=== PATIENT | female | born 1990 | race African-American/Black ===

== ENCOUNTER 2016-09-10 13:50 | Emergency (ER) | payer OTHER, SELFPAY ==
[2016-09-10] MEDS ORDERED: Acetaminophen 500 MG TAB ONE (14:05)
--- NOTE | 2016-09-10 14:32 | ERRECORD ---
[facility] EMERGENCY RECORD HPI FLU-LIKE SYNDROME (14:13 BPIC) CHIEF COMPLAINT: Patient presents for evaluation of body aches, Patient presents for evaluation of fatigue, Patient presents for evaluation of fever, subjective. HISTORIAN: History provided by patient. LOCATION: Symptoms are generalized. SEVERITY: Maximum severity of symptoms moderate, Currently symptoms are moderate. TIME COURSE: Gradual onset of symptoms, are constant. ASSOCIATED WITH: Associated with cough, non-productive, Associated with headache. EXACERBATED BY: Patient's condition exacerbated by nothing. RELIEVED BY: Patient's condition relieved by over the counter medications, antipyretics (transiently). ROS (14:13 BPIC) CONSTITUTIONAL: Negative constitutional review of systems. EYES: Negative eye review of systems. ENT: Negative ears, nose, throat review of systems. CARDIOVASCULAR: Negative cardiovascular review of systems. RESPIRATORY: Negative respiratory review of systems. GI: Negative gastrointestinal review of systems. MUSCULOSKELETAL: Negative musculoskeletal review of systems. SKIN: Negative skin review of systems. PSYCHIATRIC: Negative psychiatric review of systems. NOTES: All other ROS is negative except as listed in HPI. PAST MEDICAL HISTORY MEDICAL HISTORY: No past medical history. (13:59 MDEB) NOTES: I have reviewed and agree with the PMH/PSxH/FamHx/SocHx obtained by the nurse. (14:13 BPIC) KNOWN ALLERGIES No Known Allergies CURRENT MEDICATIONS No recorded medications VITAL SIGNS (13:57 MDEB) VITAL SIGNS: BP: 130/83, Pulse: 107, Resp: 20, Temp: 101.2 (Tympanic), Pain: 7, O2 sat: 98 on Room Air, Time: 09/10/2016 13:57. PHYSICAL EXAM (14:13 BPIC) CONSTITUTIONAL: Vital signs reviewed, Patient afebrile, Pulse normal, Blood pressure normal, Respiratory rate normal, Patient appears non toxic, Patient appears pain free, Patient alert and oriented to person, place and time. HEAD: Head exam included findings of head atraumatic, normocephalic. &a-1R&a+25V*p+0X*l6335D*c202B*c15G*c2P*p-0X&a-25V&a+1R Name: Jocelynn Araiza : 1990 F26 MedRec: [id number] AcctNum: [id number] Prepared: ThuSep 10, 2016 21:21 by Interface Page 1 of 2 pMD [facility] EMERGENCY RECORD EYES: Eye exam included findings of eyelids normal to inspection, Pupils equally round and reactive to light, Extraocular muscles intact. ENT: ENT exam normal, Nose exam included findings of, Nasal congestion noted., Pharynx, Mild erythema, Uvula exam normal. NECK: Neck exam included findings of normal range of motion, Trachea midline. RESPIRATORY CHEST: Respiratory exam included findings of no respiratory distress, Breath sounds clear, Chest exam included findings of chest movement symmetrical, Chest expansion equal. CARDIOVASCULAR: Cardiovascular exam included findings of heart rate regular rate and rhythm, Heart sounds normal. NEURO: Neuro exam findings include patient oriented to person, place and time, Speech normal. PSYCHIATRIC: Psychiatric exam included findings of patient oriented to person place and time, Normal affect. MEDICATION ADMINISTRATION SUMMARY Drug Name: *Tylenol Children's, Dose Ordered: 6 teaspoon, Route: Oral, Status: Given, Time: 14:11 09/10/2016, *Additional information available in notes, Detailed record available in Medication Service section. DOCTOR NOTES (14:13 BPIC) TEXT: Pt is well hydrated, non-toxic, and tolerating PO's. Pt is suitable for O/P treatment with PCP f/u. PROBLEM LIST No recorded problems DIAGNOSIS (14:13 BPIC) FINAL: PRIMARY: Viral Syndrome. PRESCRIPTION No recorded prescriptions DISPOSITION PATIENT: Disposition Type: Discharge, Disposition: *Discharge Home, Condition: Good. (14:13 BPIC) Patient left the department. (14:25 MDEB) Harding: BPIC=MD Ana, Eze BURRELLEB=ALYCIA Ward, Danyell &a-1R&a+25V*p+0X*[id number]*c202B*c15G*c2P*p-0X&a-25V&a+1R Name: Jocelynn Araiza : 1990 F26 MedRec: [id number] AcctNum: [id number] Prepared: ThuSep 10, 2016 21:21 by Interface Page 2 of 2 pMD MTDD
--- NOTE | 2016-09-10 14:38 | PICIS ---
[facility] EMERGENCY RECORD TRIAGE (13:59 MDEB) PATIENT: NAME: Jocelynn Araiza, AGE: 26, GENDER: female, : Supriya 1990, TIME OF GREET: ThuSep 10, 2016 13:51, PREFERRED LANGUAGE: Mongolian, RACE: Black or , ETHNICITY: Not or , ECODE BILLING MAP: [facility], SSN: [id number], Zip Code: [address], PHONE: , , , PERSON ID: [id number], PCP: QUE. (13:59 MDEB) KG WEIGHT: 83.46. (14:01 MDEB) TRIAGE NOTES: ST, FEVER, HEADACHE, GENERALIZED BODY ACHES THAT STARTED THIS AM. (13:59 MDEB) COMPLAINT: FLU LIKE SYM. (13:59 MDEB) ADMISSION: URGENCY: 3 Urgent, ADMISSION SOURCE: Home, TRANSPORT: Walk-in, BED: TRIAGE. (13:59 MDEB) PAIN: Patient complains of pain described as, aching, on a scale 0-10 patient rates pain as 7, Location THROAT. (13:59 MDEB) TRIAGE SCREENING: Patient denies suicidal ideation, Patient denies presence of domestic violence. (13:59 MDEB) PROVIDERS: TRIAGE NURSE: Danyell Ward RN. (13:59 MDEB) VITAL SIGNS: BP 130/83, Pulse 107, Resp 20, Temp 101.2, (Tympanic), Pain 7, O2 Sat 98, on Room Air, Time 09/10/2016 13:57. (13:57 MDEB) PREVIOUS VISIT ALLERGIES: No Known Allergies. (13:59 MDEB) KNOWN ALLERGIES No Known Allergies CURRENT MEDICATIONS No recorded medications VITAL SIGNS (13:57 MDEB) VITAL SIGNS: BP: 130/83, Pulse: 107, Resp: 20, Temp: 101.2 (Tympanic), Pain: 7, O2 sat: 98 on Room Air, Time: 09/10/2016 13:57. NURSING ASSESSMENT: ENT (14:01 MDEB) CONSTITUTIONAL: Patient arrives ambulatory, Gait steady, History obtained from patient, Patient appears, anxious, uncomfortable, Patient cooperative, Patient alert, Oriented to person, place and time, Skin warm, Skin dry, Skin normal in color, Mucous membranes pink, Mucous membranes moist, Patient is well-groomed, Patient complains of ST, FEVER, HEADACHE, GENERALIZED BODY ACHES. PAIN: aching pain, THROAT, on a scale 0-10 patient rates pain as 7, Pain exacerbated by nothing, Nothing has been tried to alleviate the pain. ENT: Ear assessment findings include ear normal to inspection, Nasal assessment findings include nose normal to inspection, Mouth and throat assessment findings include mouth inspection normal, Mucous membranes pink, and moist, Able to swallow, Speech normal, &a-1R&a+25V*p+0X*v5443D*c202B*c15G*c2P*p-0X&a-25V&a+1R Name: Jocelynn Araiza : 1990 F26 MedRec: [id number] AcctNum: [id number] Prepared: ThuSep 10, 2016 21:28 by Interface Page 1 of 4 pMD [facility] EMERGENCY RECORD Associated with fever, Maximum temperature (degree F) 101.2, tympanically, Associated with headache, STARTED THIS AM. RESPIRATORY/CHEST: Respiratory assessment findings include respiratory effort easy, Respirations regular, Conversing normally, Neck and chest exam findings include trachea midline, Chest expansion equal, Chest movement symmetrical. NOTES: Emotional support needed and given, Patient tolerated procedure well. SAFETY: Cart/Stretcher in lowest position, Call light within reach, Hospital ID band on. NURSING PROCEDURE: DISCHARGE NOTE (14:22 MDEB) DISCHARGE: Patient discharged to home, ambulating without assistance, family driving, unaccompanied, Summary of Care printed/ provided, Patient requested and was provided an electronic copy of Discharge Instructions, Transition record given to patient, Discharge instructions given to patient, Above person(s) verbalized understanding of discharge instructions and follow-up care, Patient treated and evaluated by physician. BELONGINGS: Belongings remain with patient, Valuables remain with patient. NOTES: Emotional support needed and given, Patient tolerated procedure well. MEDICATION ADMINISTRATION SUMMARY Drug Name: *Tylenol Children's, Dose Ordered: 6 teaspoon, Route: Oral, Status: Given, Time: 14:11 09/10/2016, *Additional information available in notes, Detailed record available in Medication Service section. MEDICATION SERVICE (14:11 BPIC) Tylenol Children's: Order: Tylenol Children's (acetaminophen) - Dose: 6 teaspoon : Oral Schedule: Now Notes: ADMINISTERED PER NURSING PROTOCOL FOR FEVER Ordered by: Eze Perez MD Entered by: Danyell Ward RN ThuSep 10, 2016 14:11 Documented as given by: Danyell Ward RN ThuSep 10, 2016 14:11 Patient, Medication, Dose, Route and Time verified prior to administration. Amount given: 6 TSP, Site: Medication administered P.O., Correct patient, time, route, dose and medication confirmed prior to administration, Patient advised of actions and side-effects prior to administration, Allergies confirmed and medications reviewed prior to administration, Patient in position of comfort, Side rails up, Cart in lowest position, Family at bedside, PT REPORTS UNABLE TO SWALLOW PILLS. &a-1R&a+25V*p+0X*d0907U*c202B*c15G*c2P*p-0X&a-25V&a+1R Name: Jocelynn Araiza : 1990 F26 MedRec: [id number] AcctNum: [id number] Prepared: ThuSep 10, 2016 21:28 by Interface Page 2 of 4 pMD [facility] EMERGENCY RECORD HPI FLU-LIKE SYNDROME (14:13 BPIC) CHIEF COMPLAINT: Patient presents for evaluation of body aches, Patient presents for evaluation of fatigue, Patient presents for evaluation of fever, subjective. HISTORIAN: History provided by patient. LOCATION: Symptoms are generalized. SEVERITY: Maximum severity of symptoms moderate, Currently symptoms are moderate. TIME COURSE: Gradual onset of symptoms, are constant. ASSOCIATED WITH: Associated with cough, non-productive, Associated with headache. EXACERBATED BY: Patient's condition exacerbated by nothing. RELIEVED BY: Patient's condition relieved by over the counter medications, antipyretics (transiently). ROS (14:13 BPIC) CONSTITUTIONAL: Negative constitutional review of systems. EYES: Negative eye review of systems. ENT: Negative ears, nose, throat review of systems. CARDIOVASCULAR: Negative cardiovascular review of systems. RESPIRATORY: Negative respiratory review of systems. GI: Negative gastrointestinal review of systems. MUSCULOSKELETAL: Negative musculoskeletal review of systems. SKIN: Negative skin review of systems. PSYCHIATRIC: Negative psychiatric review of systems. NOTES: All other ROS is negative except as listed in HPI. PAST MEDICAL HISTORY MEDICAL HISTORY: No past medical history. (13:59 MDEB) NOTES: I have reviewed and agree with the PMH/PSxH/FamHx/SocHx obtained by the nurse. (14:13 BPIC) PHYSICAL EXAM (14:13 BPIC) CONSTITUTIONAL: Vital signs reviewed, Patient afebrile, Pulse normal, Blood pressure normal, Respiratory rate normal, Patient appears non toxic, Patient appears pain free, Patient alert and oriented to person, place and time. HEAD: Head exam included findings of head atraumatic, normocephalic. EYES: Eye exam included findings of eyelids normal to inspection, Pupils equally round and reactive to light, Extraocular muscles intact. ENT: ENT exam normal, Nose exam included findings of, Nasal congestion noted., Pharynx, Mild erythema, Uvula exam normal. NECK: Neck exam included findings of normal range of motion, Trachea midline. RESPIRATORY CHEST: Respiratory exam included findings of no respiratory distress, Breath sounds clear, Chest exam included &a-1R&a+25V*p+0X*q2024E*c202B*c15G*c2P*p-0X&a-25V&a+1R Name: Jocelynn Araiza : 1990 F26 MedRec: [id number] AcctNum: [id number] Prepared: ThuSep 10, 2016 21:28 by Interface Page 3 of 4 pMD [facility] EMERGENCY RECORD findings of chest movement symmetrical, Chest expansion equal. CARDIOVASCULAR: Cardiovascular exam included findings of heart rate regular rate and rhythm, Heart sounds normal. NEURO: Neuro exam findings include patient oriented to person, place and time, Speech normal. PSYCHIATRIC: Psychiatric exam included findings of patient oriented to person place and time, Normal affect. EVENTS TRANSFER: Triage to Emergency Triage. (ThuSep 10, 2016 13:59 MDEB) Emergency Triage to Main ED -05. (13:59 MDEB) Removed from Emergency Main ED -05. (14:25 MDEB) DOCTOR NOTES (14:13 BPIC) TEXT: Pt is well hydrated, non-toxic, and tolerating PO's. Pt is suitable for O/P treatment with PCP f/u. PROBLEM LIST No recorded problems DIAGNOSIS (14:13 BPIC) FINAL: PRIMARY: Viral Syndrome. DISPOSITION PATIENT: Disposition Type: Discharge, Disposition: *Discharge Home, Condition: Good. (14:13 BPIC) Patient left the department. (14:25 MDÁNGLE) INSTRUCTION (14:13 BPIC) DISCHARGE: VIRAL SYNDROME (ADULT). SPECIAL: Thank you for choosing [facility] for your care today! Please follow up with your doctor in the next 2-3 days. Return to the emergency department with any emergent or worsening concerns. God Bless you!. PRESCRIPTION No recorded prescriptions IMAGING (14:23 MDEB) *DISCHARGE INSTRUCTIONS RECEIPT: Image captured from scanner. *SUPPLY CHARGE SHEET: Image captured from scanner. ADMIN (21:14 BPIC) DIGITAL SIGNATURE: MD Ana, Eze. Harding: BPIC=MD Ana, Eze BURRELLEB=ALYCIA Ward, Danyell &a-1R&a+25V*p+0X*[id number]*c202B*c15G*c2P*p-0X&a-25V&a+1R Name: Jocelynn Araiza : 1990 F26 MedRec: [id number] AcctNum: [id number] Prepared: ThuSep 10, 2016 21:28 by Interface Page 4 of 4 pMD MTDD
== END 2016-09-10 14:22 | disposition home or self-care (01) ==
LOC: MADERS 13:50
DX: B34.9 Viral infection, unspecified (principal)
CPT/HCPCS: 99283

== ENCOUNTER 2017-10-05 14:59 | Emergency (ER) | payer OTHER | END 2017-10-05 16:15 | disposition home or self-care (01) | LOC: MADERS 14:59 | DX: J06.9 Acute upper respiratory infection, unspecified (principal) | CPT/HCPCS: 99283 ==

== ENCOUNTER 2017-11-24 05:45 | Emergency (ER) | payer OTHER ==
[2017-11-24 06:11] LABS: Pregnancy Test - Urine (BHCG) Negative (Negative); Pregu Control Background? CLEAR/WHITE (CLR/WHITE); Pregu Control Bar Appear? YES (CONTROL BAR); Specific Gravity 1.028 (1.002-1.036)
== END 2017-11-24 06:25 | disposition home or self-care (01) ==
LOC: MADERS 05:45
DX: J06.9 Acute upper respiratory infection, unspecified (principal)
CPT/HCPCS: 81025; 99283

== ENCOUNTER 2022-09-30 03:52 | Emergency (ER) | payer OTHER, SELFPAY ==
[2022-09-30] MEDS ORDERED: Lidocaine Viscous Sol 2% 15 ml UD Cup ONE (04:15)
[2022-09-30] MEDS ORDERED: Mag-Al Plus 1200 MG/1200 MG/120 MG/30 ML UDCUP ONE (04:15)
[2022-09-30 04:30] LABS: Pregnancy Test - Urine (BHCG) Negative (Negative); Pregu Control Background? CLEAR/WHITE (CLR/WHITE); Pregu Control Bar Appear? YES (CONTROL BAR); Specific Gravity 1.024 (1.002-1.036)
[2022-09-30] MEDS ORDERED: Ketorolac Tromethamine 30 MG/ML VIAL ONE (04:47)
[2022-09-30] MEDS ORDERED: Famotidine/PF 20 mg/2ml Vial ONE (04:47)
[2022-09-30 05:07] LABS: #Basophils 0.1 thou/uL (0.0-0.2); #Eosinphils 0.2 thou/uL (0.0-0.7); #Lymphocytes 3.3 thou/uL (1.20-3.40); #Monocytes 0.6 thou/uL (0.11-0.59); #Neutrophils 5.5 thou/uL (1.40-6.50); %Basophils 1.2 % (0.0-1.0); %Eosinophils 1.6 % (0.0-10.0); %Lymphocytes 33.7 % (21.0-51.0); %Monocytes 6.1 % (0.0-10.0); %Neutrophils 57.4 % (42.0-75.0); Mean Corpuscular HGB CONC 34.1 g/dL (32.0-36.0); Mean Corpuscular Hemoglobin 29.6 pg (27.0-31.0); Mean Corpuscular Volume 86.7 fl (78.0-98.0); Mean Platelet Volume 7.6 fL (7.4-10.4); Platelet Count 326 10x3/uL (130-400); RBC Distribution Width 12.3 % (11.5-14.5); Red Blood Cell (RBC) Count 4.41 mill/uL (4.20-5.40); White Blood Cell (WBC) Count 9.7 10x3/uL (4.8-10.8)
[2022-09-30 05:26] LABS: AST (SGOT) 10 U/L (5-34); Anion Gap 14 mmol/L (10-20); Bilirubin, Total 0.5 mg/dL (0.2-1.2); Calc. Creatinine Clearance 0 mL/min (70-130); Calcium 9.7 mg/dL (7.8-10.44); Carbon Dioxide 23 mmol/L (22-29); Chloride 106 mmol/L (98-107); Estimated GFR 85; Protein, Total 7.1 g/dL (6.0-8.3); Sodium 139 mmol/L (136-145)
[2022-09-30 05:57] LABS: ALT (SGPT) 15 U/L (8-55); Alkaline Phosphatase 42 U/L (40-110); BUN (Urea Nitrogen) 12 mg/dL (7.0-18.7); Globulin 3.1 g/dL (2.4-3.5); Glucose 100 mg/dL (70-105); Lipase 32 U/L (8-78)
== END 2022-09-30 06:20 | disposition home or self-care (01) ==
LOC: MADERS 03:52
DX: K80.20 Calculus of gallbladder without cholecystitis without obstruction (principal); R94.31 Abnormal electrocardiogram [ECG] [EKG]
CPT/HCPCS: 76705; 80053; 81025; 83690; 84484; 85025; 93005; 96374; 96375; J1885; S0028